=== PATIENT | male | born 1985 | race Caucasian/White ===

== ENCOUNTER 2017-12-14 08:06 | Emergency (ER) | payer OTHER ==
[~2017-12-14] VITALS: Ht 175.3 cm; Wt 90.9 kg
[2017-12-14 10:42] VITALS: BP 137/78
== END 2017-12-14 10:44 | disposition home or self-care (01) ==
LOC: ED 08:58
DX: K40.90 Unilateral inguinal hernia, without obstruction or gangrene, not specified as recurrent (principal)
CPT/HCPCS: 76705; 99284

== ENCOUNTER 2018-01-02 09:07 | Emergency (ER) | payer SELFPAY ==
[~2018-01-02] VITALS: Ht 175.3 cm; Wt 89.9 kg
[2018-01-02 09:17] VITALS: BP 125/72
== END 2018-01-02 10:04 | disposition home or self-care (01) ==
LOC: ED 09:55
DX: S93.621A Sprain of tarsometatarsal ligament of right foot, initial encounter (principal); W18.42XA Slipping, tripping and stumbling without falling due to stepping into hole or opening, initial encounter; Y93.89 Activity, other specified; Y92.830 Public park as the place of occurrence of the external cause; Y99.8 Other external cause status
CPT/HCPCS: 99284